=== PATIENT | female | born 1950 | race Hispanic/Latino ===

== ENCOUNTER 2020-06-20 07:23 | Outpatient (CLI) | payer MEDICARE ==
[2020-06-20 20:24] LABS: SARS-CoV-2 PCR by NAA Not Detected (NotDetected)
== END 2020-06-20 07:24 | disposition home or self-care (01) ==
LOC: LABBT 07:23
PROVIDERS: ATTEND Urology
DX: Z01.812 Encounter for preprocedural laboratory examination (principal); N20.1 Calculus of ureter; Z20.822 Contact with and (suspected) exposure to COVID-19
CPT/HCPCS: U0003; U0005; 87635

== ENCOUNTER 2020-06-23 06:14 | Day surgery (SDC) | payer MEDICARE ==
[2020-06-20 12:05] VITALS: BMI 46.3
[2020-06-23] MEDS ORDERED: Vancomycin 1 GM/200 ML BAG ONE (07:18)
[2020-06-23] MEDS ORDERED: Levofloxacin 500 mg/D5W 100 ml Premix Bag ONE (07:18)
[2020-06-23] MEDS ORDERED: Iothalamate Meglumine 60% 50 ML VIAL FS ONE (08:00)
[2020-06-23] MEDS ORDERED: Fentanyl 100 MCG/2 ML VIAL ONE (08:02)
[2020-06-23] MEDS ORDERED: ePHEDrine 50 MG/ML VIAL ONE (10:41)
[2020-06-23] MEDS ORDERED: Rocuronium Bromide 10 MG/ML (10ML VIAL) ONE (10:41)
[2020-06-23] MEDS ORDERED: Dexamethasone 20 MG/5 ML VIAL ONE (10:41)
[2020-06-23] MEDS ORDERED: Lidocaine 1% PF 5 ML VIAL ONE (10:41)
[2020-06-23] MEDS ORDERED: Glycopyrrolate 0.2 MG/ML 5 ML SYRINGE ONE (10:41)
[2020-06-23] MEDS ORDERED: PROPOFOL 200 MG/20 ML VIAL ONE (10:41)
[2020-06-23] MEDS ORDERED: PHENYLEPHRINE-NS 100 MCG/ML 10 ML SYRINGE ONE (10:41)
[2020-06-23] MEDS ORDERED: Ondansetron PF 4 MG/2 ML Vial ONE (10:41)
[2020-06-23] MEDS ORDERED: Metoclopramide HCl 10 MG/2 ML VIAL ONE (10:41)
[2020-06-23] MEDS ORDERED: Succinylcholine 200 MG/10 ml SYRINGE FS ONE (10:41)
[2020-06-23] MEDS ORDERED: Calcium Chloride 1 GM/10 ML Abboject SYRINGE ONE (10:41)
--- NOTE | 2020-06-23 11:16 | RAD ---
Retrograde pyelogram: 06/23/2020 COMPARISON: None HISTORY: Stent placement FINDINGS: 22 images are provided. Initial image demonstrates bilateral double-J ureteral stents. Late r imaging demonstrates removal of the right double-J ureteral stent and injection of contrast media. A focal area of narrowing is seen involving the right ureter within the pelvis which could sig nify stricture or could represent spasm. Final imaging demonstrates placement of new bilateral double-J ureteral stents. IMPRESSION: Intrauterine pyelogram as above.
--- NOTE | 2020-06-23 13:55 | OP ---
DATE OF PROCEDURE: 06/23/2020 PREOPERATIVE DIAGNOSES: 1. Bilateral ureteral stents. 2. She has a left renal and ureteral stones. 3. She has a large right staghorn. POSTOPERATIVE DIAGNOSES: 1. Bilateral ureteral stents. 2. She has a left renal and ureteral stones. 3. She has a large right staghorn. PROCEDURES PERFORMED: 1. Cystoscopy. 2. Removal of right stent with right retrograde. 3. Removal of left stent with left flexible ureteroscopy, stone retrieval, laser lithotripsy, and stent replacement. 4. Replacement of stent on the right. SPECIMENS REMOVED: Stones from the left kidney. DRAINS PLACED: Bilateral ureteral stents, 6 x 22 cm. No strings attached. FINDINGS: The stents that she had placed a week before [place] that already encrusted. They were no longer patent. She had no evidence of any left ureteral stone. She had rll-[id number]-mp-count small left renal stones, filling upper calyceal system, most of these were probably 1 to 2 mm in size, a few of them were more of 4 to 5 mm in size, and these were basketed and removed. These were sent off for stone analysis. The smaller ones were laser lithotripsied down to as much as we could just dust. We did pass a stent again on this side because of the ureteroscopy that was done and we were going to leave the stent out on the right side, but we did replace that at the end as she has had a little bit of contrast still hanging up in the edges of the calyceal system from her prior retrograde, although the ureter itself did drain well. I do not think she is obstructed on this side, but we were going to have to sedate her to get the left stent out in about 10 days, then we will repass the stent again on this side to be sure she drains fine on this side and we will get both stents out at the same time. DESCRIPTION OF PROCEDURE: After obtaining written and verbal consent from the patient after receiving IV vancomycin and Levaquin, she was taken to the operating suite. She was placed in a supine position on the treatment table. She was given a general anesthetic and oral intubation. She was then placed in the dorsal lithotomy position and sterilely prepped and draped. The fluoroscopy unit was placed over her and positioned. Both stents were easily seen. Cystoscopy was performed with a 22-D[place] sheath. This was well lubricated, passed under direct vision through the female urethra into the urinary bladder with the aid of a 30-degree lens and a video camera and monitor. The bladder was filled and emptied a number of times. The right double-J stent was grasped and brought out through the urethral meatus. It was encrusted, was removed. The upper coil did uncoil, but it was a little bit difficulty in getting it to uncoil. We shot a retrograde on that side. There was no persistent filling defect along the right ureter and the right ureter was not dilated. There was no extravasation. We left the stent down on that side as we moved on to the left side. We grasped the left stent and brought out through the urethral meatus and placed a guidewire through it. It would not go through it more than a few centimeter, so it was removed intact. A guidewire was then advanced up the left side. It went up to the proximal ureter. We placed a 5-Danish Pollack catheter up over it to that point and then removed the guidewire, injected contrast. The ureter takes time of a lateral turn at this point before enters the renal pelvis. There was no extravasation. There was no evidence of a ureteral filling defect. We fed an angled Glidewire into the left renal pelvis and then placed the open-ended catheter into the left renal pelvis. We placed the Pollack catheter into the left renal pelvis over the angled Glidewire, removed the angled Glidewire, passed our green 0.035 guidewire through the Pollack catheter into the renal pelvis and removed the Pollack catheter. We then brought in a dual-lumen ureteral catheter and placed over the guidewire, placed about alf up the ureter, injected contrast. There was nothing proximal to it and then easily fed a blue stiff wire through the 2nd port of the dual-lumen catheter and up into the renal pelvis, removed the dual-lumen catheter. We brought in a small caliber, relatively short ureteral sheath with obturator and passed over our green Stiff wire up into the proximal ureter, removing the blue Stiff guidewire in the obturator. We then brought in a flexible ureteroscope, passed it under direct vision with aid of a video camera and monitor through the ureteral sheath up through the proximal ureter and into the calyceal system. There was no evidence of any stones in the renal pelvis or proximal ureter. We then examined all of the collecting system. There were numerous stones in pretty much every portion of the collecting system. We used a Nitinol basket to remove the larger of these. We probably removed. I would guess 20 to 30 stones. On multiple passes, we did not find any significant sized stones remaining, but she had still qal-qkrzmoyb-zf-count very small stones, so we brought in the holmium laser and worked in each calyceal system, breaking these up into tiny stones and mostly just powder. Once this was completed, we then backed our ureteral sheath out under direct vision with the flexible ureteroscope just proximal to it. There was no evidence of any ureteral injury. No evidence of ureteral stones. We then passed our Pollack catheter up over our remaining green guidewire, injected contrast. There was no extravasation of contrast outside of the collecting system or the ureter. The guidewire was replaced through the [place] and the Pollack was removed and we passed a 6 x 22 double-J stent up into the renal pelvis, letting it coil in the renal pelvis and letting it coil in the bladder when the wire was removed. Because there was still some contrast staining up on the right side, we re-shot the retrograde on that side. There was again good drainage of the ureter, but there was some contrast up, which I think was probably above the staghorn that she had, so we did pass another stent up on this side, the same size as the left side done in the same manner and this was done mainly because we knew that we would have to remove the stent from the left side in a week to 10 days and will leave her stent on the right side until that time also. Job ID: [id number]
[2020-06-28 13:37] LABS: CA Oxalate Dihydrate 20 % (.); CA Oxalate Monohydrate 80 % (.); Color Brown (.); Stone Weight 334 mg (.)
== END 2020-06-23 14:06 | disposition home or self-care (01) ==
LOC: SDC 06:14
PROVIDERS: ATTEND Urology
PROC: 0TC18ZZ Extirpation of Matter from Left Kidney, Via Natural or Artificial Opening Endoscopic (ICD-10-PCS; principal; 2020-06-23)
PROC: 0T768DZ Dilation of Right Ureter with Intraluminal Device, Via Natural or Artificial Opening Endoscopic (ICD-10-PCS; 2020-06-23)
DX: N20.2 Calculus of kidney with calculus of ureter (principal); I10 Essential (primary) hypertension; I48.91 Unspecified atrial fibrillation; M79.7 Fibromyalgia; Z79.899 Other long term (current) drug therapy; Z88.8 Allergy status to other drugs, medicaments and biological substances
CPT/HCPCS: 74420; 82365; 88300; J1100; J1956; J2405; J2704; J2765; J3010; J3370; J3490

== ENCOUNTER 2020-07-11 11:12 | Day surgery (SDC) | payer MEDICARE ==
[2020-07-04 12:19] VITALS: BMI 46.3
[2020-07-11] MEDS ORDERED: MEROPENEM 1 GM/50 ML 1 GM in Premix Bag 1 BAG IVPB SCH (12:00)
[2020-07-11] MEDS ORDERED: Fentanyl 100 MCG/2 ML VIAL ONE ×2 (12:39→16:18)
[2020-07-11] MEDS ORDERED: Famotidine/PF 20 mg/2ml Vial ONE (12:39)
[2020-07-11] MEDS ORDERED: SUGAMMADEX SODIUM 200 MG/2 ML VIAL ONE (12:39)
[2020-07-11] MEDS ORDERED: Iothalamate Meglumine 60% 50 ML VIAL FS ONE (12:53)
[2020-07-11] MEDS ORDERED: Rocuronium Bromide 10 MG/ML (10ML VIAL) ONE (12:54)
[2020-07-11] MEDS ORDERED: PROPOFOL 200 MG/20 ML VIAL ONE (12:54)
[2020-07-11] MEDS ORDERED: ePHEDrine 50 MG/ML VIAL ONE (12:54)
[2020-07-11] MEDS ORDERED: Glycopyrrolate 0.2 MG/ML 5 ML SYRINGE ONE (12:54)
[2020-07-11] MEDS ORDERED: Lidocaine 1% PF 5 ML VIAL ONE (12:54)
[2020-07-11] MEDS ORDERED: Ondansetron PF 4 MG/2 ML Vial ONE (12:54)
[2020-07-11] MEDS ORDERED: PHENYLEPHRINE-NS 100 MCG/ML 10 ML SYRINGE ONE (12:54)
[2020-07-29 17:39] LABS: CA Oxalate Dihydrate 30 % (.); CA Oxalate Monohydrate 70 % (.); Color Tan (.); Stone Weight 265 mg (.)
== END 2020-07-11 17:38 | disposition home or self-care (01) ==
LOC: SDC 11:12
PROVIDERS: ATTEND Urology
PROC: 0TC38ZZ Extirpation of Matter from Right Kidney Pelvis, Via Natural or Artificial Opening Endoscopic (ICD-10-PCS; principal; 2020-07-11)
PROC: 0T768DZ Dilation of Right Ureter with Intraluminal Device, Via Natural or Artificial Opening Endoscopic (ICD-10-PCS; 2020-07-11)
DX: N20.0 Calculus of kidney (principal); I12.9 Hypertensive chronic kidney disease with stage 1 through stage 4 chronic kidney disease, or unspecified chronic kidney disease; E11.22 Type 2 diabetes mellitus with diabetic chronic kidney disease; N18.9 Chronic kidney disease, unspecified; M79.7 Fibromyalgia; Z79.899 Other long term (current) drug therapy; Z88.8 Allergy status to other drugs, medicaments and biological substances
CPT/HCPCS: 74420; 82365; 88300; 93005; 93010; J2185; J2405; J2704; J3010; J3490; S0028

== ENCOUNTER 2020-07-28 14:10 | Outpatient (CLI) | payer MEDICARE ==
[2020-07-03 14:20] LABS: Anion Gap 16 mmol/L (10-20); BUN (Urea Nitrogen) 14 mg/dL (9.8-20.1); Calc. Creatinine Clearance 0 mL/min (70-130); Calcium 8.7 mg/dL (7.8-10.44); Carbon Dioxide 25 mmol/L (23-31); Chloride 103 mmol/L (98-107); Glucose 90 mg/dL (80-115); Potassium 3.6 mmol/L (3.5-5.1); Sodium 140 mmol/L (136-145)
[2020-07-03 14:33] LABS: Hemoglobin 12.1 g/dL (12.0-16.0); Mean Corpuscular HGB CONC 30.9 G/DL (32.0-36.0); Mean Corpuscular Hemoglobin 28.3 PG (27.0-33.0); Mean Corpuscular Volume 91.8 fl (80.0-100.0); Mean Platelet Volume 10.5 fl (7.4-10.4); Platelet Count 240 10x3/uL (130-400); RBC Distribution Width 14.4 % (11.5-14.5); Red Blood Cell (RBC) Count 4.27 10x6/uL (3.90-5.20)
[2020-07-04 06:44] LABS: SARS-CoV-2 PCR by NAA Not Detected (NotDetected)
[2020-07-28 16:26] LABS: Hemoglobin 12.9 g/dL (12.0-15.5); Mean Corpuscular Volume 90.4 fl (81.6-98.3); Mean Platelet Volume 10.3 fl (7.4-10.4); Platelet Count 188 10x3/uL (150-450); RBC Distribution Width 14.6 % (11.5-14.5); White Blood Cell (WBC) Count 6.3 10x3/uL (3.5-10.5)
[2020-07-28 16:27] LABS: Bilirubin Neg (Negative); Blood, Urine 250 (Negative); Clarity Cloudy (Clear); Glucose, Urine (Dipstick) Normal (Negative); Ketone, Urine 5 mg/dL (Negative); Leukocyte 500 (Negative); Nitrite Negative (Negative); Protein, Urine (Dipstick) 100 mg/dl (Neg-Trace)
[2020-07-28 16:43] LABS: Bacteria/HPF 3+ HPF (None Seen); RBC/HPF Greater than 50 HPF (0-3); WBC/HPF Greater Than 50 HPF (0-3)
[2020-07-28 16:44] LABS: Calcium Oxalate Crystals 2+ HPF (None Seen)
[2020-07-28 16:46] LABS: Mucous/LPF Rare LPF (<2+); Transitional Epithelial 0-3 HPF (None Seen); Yeast-Budding Rare HPF (None Seen); Yeast-Hyphae 1+ HPF (None Seen)
[2020-07-28 16:47] LABS: PTT 26.2 sec (22.0-33.0)
[2020-07-28 16:48] LABS: Anion Gap 16 mmol/L (10-20); BUN (Urea Nitrogen) 12 mg/dL (9.8-20.1); Calc. Creatinine Clearance 0 mL/min (70-130); Calcium 9.3 mg/dL (7.8-10.44); Carbon Dioxide 26 mmol/L (23-31); Chloride 103 mmol/L (98-107); Glucose 77 mg/dL (80-115); Potassium 3.8 mmol/L (3.5-5.1); Sodium 141 mmol/L (136-145)
[2020-07-29 01:55] LABS: SARS-CoV-2 PCR by NAA Not Detected (NotDetected)
== END 2020-07-28 14:11 | disposition home or self-care (01) ==
LOC: LABBT 14:10
PROVIDERS: ATTEND Urology
DX: Z01.812 Encounter for preprocedural laboratory examination (principal); N20.0 Calculus of kidney; Z20.822 Contact with and (suspected) exposure to COVID-19
CPT/HCPCS: 80048 ×2; 81001; 85027 ×2; 85610; 85730; 87086; U0003 ×2; U0005 ×2; 87635

== ENCOUNTER 2020-07-31 09:03 | Day surgery (SDC) | payer MEDICARE ==
[2020-07-30 13:11] VITALS: BMI 49.4
[~2020-07-31 09:03] MED LIST: Glycopyrrolate 0.2 MG/ML 5 ML SYRINGE ONE; Lidocaine 1% PF 5 ML VIAL ONE; Ondansetron PF 4 MG/2 ML Vial ONE; PHENYLEPHRINE-NS 100 MCG/ML 10 ML SYRINGE ONE; PROPOFOL 200 MG/20 ML VIAL ONE; Rocuronium Bromide 10 MG/ML (10ML VIAL) ONE; ePHEDrine 50 MG/ML VIAL ONE
[2020-07-31] MEDS ORDERED: Midazolam HCl 2 mg/2 ml Vial ONE (10:04)
[2020-07-31] MEDS ORDERED: Fentanyl 100 MCG/2 ML VIAL ONE (10:04)
[2020-07-31] MEDS ORDERED: Iothalamate Meglumine 60% 50 ML VIAL FS ONE (11:00)
[2020-07-31] MEDS ORDERED: Levofloxacin 500 mg/D5W 100 ml Premix Bag ONE (11:42)
--- NOTE | 2020-07-31 14:43 | RAD ---
EXAM: Retrograde IVP HISTORY: Kidney stones status post removal COMPARISON: 07/11/2020 FINDINGS/IMPRESSION: Limited intraoperative fluoroscopic views of the retrograde IVP were submitted f or interpretation. There is a right-sided ureteral stent. A wire is eventually placed into the right renal collecting system. There may be mild right-sided hydronephrosis. A double-J ureteral maria eugenia nt is again placed at the completion of procedure in the right renal collecting system and appears in good position.
--- NOTE | 2020-07-31 15:03 | OP ---
DATE OF PROCEDURE: 07/31/2020 PREOPERATIVE DIAGNOSIS: Right renal stones. POSTOPERATIVE DIAGNOSIS: Right renal stones. PROCEDURES PERFORMED: Right flexible ureteroscopy, stone retrieval, laser lithotripsy, and stent replacements. ANESTHESIA: General. ESTIMATED BLOOD LOSS: Minimal. FINDINGS: She had numerous small stone fragments in the upper, mid, and lower calyceal systems. The majority of these was actually basketed and removed. The smaller ones that remained were too small to basket. We just lasered into smaller ones to hopefully help her ease more easily, not reform or recurrent stones. DRAINS PLACED: 6 x 24 [place] with a string attached that was a double-J stent. DESCRIPTION OF PROCEDURE: After obtaining written and verbal consent from the patient, she was taken to the operating suite. She was given general anesthetic and oral intubation. She was placed in the dorsal lithotomy position, sterilely prepped and draped. Fluoroscopy unit was positioned over her. She underwent cystoscopy with a 22-[place] sheath. This was well lubricated and passed under direct vision through the female urethra into the bladder. The bladder was filled and emptied number of times and then the distal end was grasped with a flexible grasping forceps and was brought out through the urethral meatus and a guidewire was fed up through it up into the region of the renal pelvis and the stent was removed over the guidewire and discarded. A dual-lumen catheter was placed over the guidewire about the 3rd way up the ureter and then we injected contrast through the second port. There was no evidence of any filling defects in the ureter. Some filling defects seen in the calyceal system. A blue stiff guidewire was then fed up adjacent to the green guidewire through the second port of the dual-lumen system, and the dual-lumen catheter was removed. An obturator was brought in and placed over the blue stiff wire up in the region of renal pelvis and then the obturator with the ureteral sheath was placed over the same guidewire up into the region of renal pelvis, and obturator and the blue wire were removed. A flexible ureteroscope was brought in, passed up through the ureteral sheath and then we systematically went through each calyceal system using a Nitinol basket, removing any pieces we could basket and went back through the same system using a holmium laser to laser any remaining stone fragments. We then backed out the ureteral sheath under direct vision with the flexible ureteroscope. There was no evidence of any ureteral damage. There was one little stone noted that was manipulated into the sheath and removed. We then backloaded our cystoscopic sheath through our existing green guidewire, fed a 5-[place]gent[place] Pollack catheter up in the renal pelvis, injected contrast. There was no extravasation in contrast going down the ureter. The guidewire was replaced. The open-ended catheter was removed and the stent was placed over the guidewire and pushed up into place with aid of a pusher, so its proximal end coiled in the upper pole calyceal system, its distal end coiled in the bladder when the wire was removed. Bladder was drained. The instruments were removed. She was taken out of the dorsal lithotomy position, awakened, extubated, and taken by stretcher to recovery room. Job ID: [id number]
== END 2020-07-31 15:33 | disposition home or self-care (01) ==
LOC: SDC 09:03
PROVIDERS: ATTEND Urology
PROC: 0TC38ZZ Extirpation of Matter from Right Kidney Pelvis, Via Natural or Artificial Opening Endoscopic (ICD-10-PCS; principal; 2020-07-31)
PROC: 0T768DZ Dilation of Right Ureter with Intraluminal Device, Via Natural or Artificial Opening Endoscopic (ICD-10-PCS; 2020-07-31)
DX: N20.0 Calculus of kidney (principal); I10 Essential (primary) hypertension; M79.7 Fibromyalgia; I48.91 Unspecified atrial fibrillation; Z79.1 Long term (current) use of non-steroidal anti-inflammatories (NSAID); Z79.2 Long term (current) use of antibiotics; Z79.899 Other long term (current) drug therapy; Z88.8 Allergy status to other drugs, medicaments and biological substances
CPT/HCPCS: 74420; 82365; 88300; J1956; J2250; J2405; J2704; J3010; J3490